=== PATIENT | male | born 1990 | race Two or more races ===

== ENCOUNTER 2016-09-14 10:21 | Emergency (ER) | payer SELFPAY ==
[~2016-09-14] VITALS: Ht 167.6 cm; Wt 63.5 kg
[2016-09-14 10:26] VITALS: BP 158/90
== END 2016-09-14 10:42 | disposition home or self-care (01) ==
LOC: ER 10:22
DX: F18.10 Inhalant abuse, uncomplicated (principal); F17.200 Nicotine dependence, unspecified, uncomplicated; Z59.0 Homelessness
CPT/HCPCS: A4606; Z7610

== ENCOUNTER 2020-09-03 14:01 | Emergency (ER) | payer OTHER ==
[~2020-09-03] VITALS: Ht 170.2 cm; Wt 65.8 kg
--- NOTE | 2020-09-03 14:28 | NUR ---
AT BEDSIDE FOR EVAL.
[2020-09-03 15:37] VITALS: BP 128/78
--- NOTE | 2020-09-03 15:38 | NUR ---
Patient discharged accompanied by [employer] in no distress.
== END 2020-09-03 15:37 ==
LOC: ER 14:07
DX: S52.592A Other fractures of lower end of left radius, initial encounter for closed fracture (principal); F10.10 Alcohol abuse, uncomplicated; F17.200 Nicotine dependence, unspecified, uncomplicated; Y90.9 Presence of alcohol in blood, level not specified; Z02.89 Encounter for other administrative examinations; W22.8XXA Striking against or struck by other objects, initial encounter; Y93.89 Activity, other specified; Y92.89 Other specified places as the place of occurrence of the external cause; Y99.8 Other external cause status
CPT/HCPCS: 73090-TC